=== PATIENT | female | born 1985 | race Caucasian/White ===

== ENCOUNTER 2016-05-30 20:49 | Inpatient (IN) | payer MEDICAID ==
[~2016-05-30] VITALS: Ht 157.5 cm; Wt 66.1 kg
[2016-05-30 21:09] VITALS: BP 100/57; PULSE 67; RESP 18
[2016-05-30] MEDS ORDERED: PRENAT PO (21:25)
[2016-05-30 22:48] LABS: ADD UMIC YES; URINE BILIRUBIN (Dip) NEGATIVE (NEGATIVE); URINE BLOOD (Dip) NEGATIVE (NEGATIVE); URINE COLOR LT. YELLOW (YELLOW); URINE GLUCOSE (Dip) NEGATIVE (NEGATIVE); URINE KETONES (Dip) NEGATIVE (NEGATIVE); URINE LEUKOCYTE ESTERASE (Dip) 3+ (NEGATIVE); URINE NITRITE (Dip) NEGATIVE (NEGATIVE); URINE TOTAL PROTEIN (Dip) NEGATIVE (NEGATIVE); URINE UROBILINOGEN (Dip) 0.2 E.U./dL (0.1-1.0)
[2016-05-30 23:00] LABS: SQUAMOUS EPITHELIAL CELL,UR MANY
[2016-05-30 23:01] LABS: BACTERIA,URINE MANY; URINE RBCS 0-2 /HPF (0)
--- NOTE | 2016-05-31 01:30 | PN ---
Date/Time of Note Date/Time of Note DATE: 05/31/16 TIME: 01:23 OB Subjective Subjective Subjective c/o lower abdominal pain for the last 3days intermittently visiting from [place] , 8days ago arrived no other subjective sx pain 05/22 OB Objective Objective Objective u/a pos for wbc5-10 leuk 3+ abdomen soft no tenderness sig cva neg for tenderness afebrile OB Assessment/Plan Other Assessment: had visit on regular basis acc to patient EDC 07/22/16 32 w 3d size small for age UTI Other plan: oral fluid U/S for GA and EFW Rx macrobi bid #20 DEANA THOMAS MD May 31, 2016 01:30
--- NOTE | 2016-05-31 02:16 | RADRPT ---
PROCEDURE: Obstetrical ultrasound, limited. CLINICAL INDICATION: Pelvic pain. TECHNIQUE: Multiple sonographic images of the pelvis were obtained using transabdominal technique . Images were obtained with craig scale and color Doppler. The images were reviewed on a PACS works tation. COMPARISON: No prior studies are available for comparison. FINDINGS: There is a single living intrauterine gestation with the fetus in a breech presentation. hear t tones of 144 beats per minute are identified. The placenta is anterior in location, grade 1-2. T here is borderline low amniotic fluid volume with an ANDREA of 5.7 cm. There is no evidence of placent a previa or abruption. Measurements were made in order to determine age. The results are as follows: BPD =8.28 cm HC =29.00 cm AC =27.94 cm FL =6.42 cm. Estimated gestational age of approximately 32 weeks and 4 days. The estimated date of delivery is 07/22/2016. The EFW = 1976 +/- 296 grams. Estimated weight percentage equals 35.7%. IMPRESSION: Single viable intrauterine gestation of approximately 32 weeks and 4 days, with an ultrasound DONTRELL of 07/22/2016. Borderline oligohydramnios with an ANDREA of 5.7 cm. .Kiet Pérez MD, Date Time Electronically viewed and signed by .Kiet Pérez MD, MD on 05/31/2016 02:15 .T/
[2016-05-31] MEDS: LACTATED RINGER'S 1,000 ML IV SCH ×3 (03:00→17:58)
--- NOTE | 2016-05-31 05:56 | TRIAGE ---
OB Triage Datetime Report Generated by CPN: 05/31/2016 05:56 Datetime: 05/31/2016 03:30 Assessment Type: Admission Assessment Vaginal Bleeding: None Maternal Assessment Level of Consciousness: Fully Conscious DTR's/Clonus: DTRs 2+; No Clonus Headache: Denies Blurred Vision: No Respiratory Effort: Unlabored Nausea/Vomiting: Denies RUQ Epigastric Pain: Denies Lower Extremities Edema: None Degree: None Upper Extremities Edema: None Degree: None Facial Edema: None Fall Risk Assessment History of Falling: (0) No Secondary Diagnosis: (0) No Ambulatory Aid: (0) Bedrest/Nurse Assist IV Therapy: (20) Yes Gait: (0) Normal/Bedrest/Immobile Mental Status: (0) Oriented to Own Ability Fall Score: 20 Fall Risk Score Definition: No Risk: No action required Labor Evaluation Frequency: 0 Duration (sec)2399: 0 Pattern: Normal: <= 5 Contractions in 10 Minutes Resting Tone [place]: Relaxed Heart Rate FHR Baseline Rate: 130 Variability: Moderate 6-25 bpm Accelerations: 15X15 Decelerations: None Category: Category I Pain Assessment Pain Scale: 0 Pain Presence: None/Denies Pain Type: N/A Pain Goal: 0 Datetime: 05/31/2016 03:00 Stage of : Antepartum Labor Evaluation Frequency: 0 Monitor Mode: External Duration (sec)2399: 0 Pattern: Normal: <= 5 Contractions in 10 Minutes Resting Tone [place]: Relaxed Contraction Comments: uterine irritiability noted. Heart Rate FHR Baseline Rate: 130 Monitor Mode: External US Variability: Moderate 6-25 bpm Accelerations: 15X15 Decelerations: None Category: Category I Datetime: 05/31/2016 02:43 Vaginal Exam Membrane Status: Intact Datetime: 05/31/2016 02:31 Stage of : OB Triage Datetime: 05/31/2016 02:30 Stage of : OB Triage Datetime: 05/31/2016 02:00 Stage of : OB Triage Labor Evaluation Frequency: 0 Monitor Mode: External Duration (sec)2399: 0 Pattern: Normal: <= 5 Contractions in 10 Minutes Resting Tone [place]: Relaxed Heart Rate FHR Baseline Rate: 130 Monitor Mode: External US Variability: Moderate 6-25 bpm Accelerations: 15X15 Decelerations: None Category: Category I Datetime: 05/31/2016 01:00 Labor Evaluation Frequency: 0 Monitor Mode: External Duration (sec)2399: 0 Pattern: Normal: <= 5 Contractions in 10 Minutes Resting Tone [place]: Relaxed Contraction Comments: uterine irritiability noted Heart Rate FHR Baseline Rate: 130 Monitor Mode: External US Variability: Moderate 6-25 bpm Accelerations: 15X15 Decelerations: None Category: Category I Datetime: 05/31/2016 00:05 Stage of : OB Triage Labor Evaluation Frequency: x1 and uterine irritiability Monitor Mode: External Duration (sec)2399: 70 Quality: Mild Pattern: Normal: <= 5 Contractions in 10 Minutes Resting Tone [place]: Relaxed Heart Rate FHR Baseline Rate: 130 Monitor Mode: External US Variability: Moderate 6-25 bpm Accelerations: 15X15 Decelerations: None Category: Category I Datetime: 05/30/2016 22:55 Labor Evaluation Frequency: 0 Monitor Mode: External Duration (sec)2399: 0 Pattern: Normal: <= 5 Contractions in 10 Minutes Resting Tone [place]: Relaxed Contraction Comments: uterine irritiabilty noted, lasting 10-30 seconds. Heart Rate FHR Baseline Rate: 130 Monitor Mode: External US Variability: Moderate 6-25 bpm Accelerations: 15X15 Decelerations: None Category: Category I Pain Assessment Pain Scale: 4 Pain Presence: Intermittent Pain Type: Cramping Pain Location: Abdomen Pain Goal: 1 Pain Relief Measures: Comfort Measures Pain Assessment Comments: pt. states she gets occassional pain on her lower right abdomen lasts 5- 10 seconds only. Datetime: 05/30/2016 22:00 Monitor Mode: External Resting Tone [place]: Relaxed Contraction Comments: uterine irritiability noted, lasting 30-40 seconds with pain. Heart Rate FHR Baseline Rate: 130 Monitor Mode: External US Variability: Moderate 6-25 bpm Accelerations: 15X15 Decelerations: None Category: Category I Datetime: 05/30/2016 21:08 Time of Arrival: 05/31/2016 03:00 EGA: 32.4 Arrived By: Wheelchair Arrived From: Home Chief Complaint: left lower abdominal pain Movement: Present Contractions: Denies/Absent Rupture of Membranes: Denies Vaginal Bleeding: None Vaginal Discharge: Denies Recent Sexual Intercouse: Denies Abdominal Trauma: Not Applicable Patient Complaints: Other Time Provider Notified: 05/30/2016 22:10 Provider Notified: Mitra Initial Plan: NST Datetime: 05/30/2016 21:07 Stage of : OB Triage Assessment Type: Triage Maternal Assessment Level of Consciousness: Fully Conscious DTR's/Clonus: DTRs 2+; No Clonus Headache: Denies Blurred Vision: No Respiratory Effort: Unlabored; Regular Rhythm; Equal Expansion Breath Sounds, Left: Clear and Equal Breath Sounds, Right: Clear and Equal Nausea/Vomiting: Denies RUQ Epigastric Pain: Denies Lower Extremities Edema: None Degree: None Upper Extremities Edema: None Degree: None Facial Edema: None Temperature Route: Oral Fall Risk Assessment History of Falling: (0) No Secondary Diagnosis: (0) No Ambulatory Aid: (0) Bedrest/Nurse Assist IV Therapy: (0) No Gait: (0) Normal/Bedrest/Immobile Mental Status: (0) Oriented to Own Ability Fall Score: 0 Fall Risk Score Definition: No Risk: No action required
--- NOTE | 2016-05-31 08:50 | RADRPT ---
AMENDMENT: 05/31/2016 12:47:46 PM Gopi Feliciano Md The amniotic fluid index is 6.7 cm. PROCEDURE: US OB. CLINICAL INDICATION: Contractions. labor and 32 weeks gestational age. TECHNIQUE: Multiple sonographic images of the uterus were obtained. The images were revi ewed on a PACS workstation. COMPARISON: No prior studies are available for comparison. FINDINGS: There is a single live intrauterine gestation. heart rate is 143 beats per minute. Measurements were made in order to determine age. The results are as follows: BPD = 7.99 cm. HC = 29.63 cm. AC = 27.20 cm. FL = 6.31 cm. Estimated weight is 1862 +/- 279 grams. LMP growth percentile is 21 %. Menstrual age by ultrasound dates is 32 weeks 1 day. The estimated date of delivery is 07/25/2016. Position is cephalic and placenta is anterior. There is no evidence for an abruption or placenta pre via. IMPRESSION: 1. Single live intrauterine gestation of 32 weeks 1 day menstrual age by ultrasound dates. 2. The estimated date of delivery is 07/25/2016. RPTAT: QQ .Gopi Feliciano MD, Date Time Electronically viewed and signed by .Gopi Feliciano MD, on 05/31/2016 12:47 .R/
[2016-05-31 10:45] LABS: ADD SCAN DIFF NO
[2016-05-31 10:49] LABS: BASOPHILS % 0.2 % (0.0-2.0); EOSINOPHILS % 0.4 % (0.0-7.0); HEMATOCRIT 34.7 % (37.0-47.0); HEMOGLOBIN 11.1 g/dl (12.0-16.0); LYMPHOCYTES # 2.3 10^3/ul (0.8-2.9); LYMPHOCYTES % 23.9 % (15.0-51.0); MEAN CORPUSCULAR HEMOGLOBIN 30.5 pg (29.0-33.0); MEAN CORPUSCULAR VOLUME 95.3 fl (82.0-101.0); MEAN PLATELET VOLUME 10.5 fl (7.4-10.4); MONOCYTE # 0.6 10^3/ul (0.3-0.9); MONOCYTES % 6.4 % (0.0-11.0); NEUTROPHIL # 6.5 10^3/ul (1.6-7.5); NEUTROPHILS % 68.4 % (39.0-77.0); PLATELET COUNT 271 10^3/UL (140-415); RED BLOOD COUNT 3.64 10^6/ul (4.20-5.40); RED CELL DISTRIBUTION WIDTH 13.9 % (11.5-14.5); WHITE BLOOD COUNT 9.5 10^3/ul (4.8-10.8)
--- NOTE | 2016-05-31 10:53 | RADRPT ---
PROCEDURE: Limited obstetric ultrasound CLINICAL INDICATION: CONTRACTIONS TECHNIQUE: Multiple transverse and longitudinal grayscale images of the pelvis were obtained winn sabdominally and endovaginally.. COMPARISON: Obstetrical ultrasound from 05/31/2016 at 08:18 hours FINDINGS: See impression. RPTAT: AA IMPRESSION: The cervix is closed and measures 4.1 cm in length. Physician Denny Date Time Electronically viewed and signed by Reginald Ojeda Physician on 05/31/2016 10:53 RA/
[2016-05-31 11:08] LABS: INR 1.1; PROTIME 14.2 Sec (12.2-14.2); PT RATIO 1.1
[2016-05-31 11:09] LABS: PARTIAL THROMBOPLASTIN TIME 28.1 Sec (25.0-35.0)
--- NOTE | 2016-05-31 16:18 | RADRPT ---
PROCEDURE: OB ultrasound for biophysical profile CLINICAL INDICATION: Biophysical profile. . Low amniotic fluid index. TECHNIQUE: Multiple sonographic images of the pelvis were obtained. Transabdominal view of the gr avid uterus are available for review. COMPARISON: OB ultrasound 05/31/2016 FINDINGS: Single intrauterine gestation. Presentation: Cephalic. breathing movement = 2/2 tone = 2/2 motion = 2/2 ANDREA = 2/2 ANDREA = 9.4 cm heart rate: 140 beats per minute IMPRESSION: Single intrauterine gestation. Biophysical profile 09/19 Amniotic fluid index of 9.4 cm, was previously measured as 6.0 cm earlier the same day. RPTAT: AADD .Andrew Martinez MD, MD Date Time Electronically viewed and signed by .Andrew Martinez MD, on 05/31/2016 16:17 .B/
[2016-05-31 22:09] LABS: BARBITURATES Negative (NEGATIVE); BENZODIAZEPINES Negative (NEGATIVE); CANNABINOIDS Negative (NEGATIVE); COCAINE Negative (NEGATIVE); OPIATES Negative (NEGATIVE)
--- NOTE | 2016-05-31 22:32 | QN ---
Documentation Comment Patient admitted last night due to incidental finding of oligohydramnios noted during ultrasound when she presented to triage with complaint of cramping. She had borderline low amniotic fluid, 6.2 She was admitted for repeat ANDREA after hydration. Patient denies any leaking of fluid, contraction, vaginal bleeding or decreased movement. She has recently moved from [place] visiting here. Reports that she had care in [place]. She had some records in [place] and random labs, not complete records She denies any mosquito Bite or any symptoms Repeat ANDREA still low 6.7 after hydration. No genetic screenig records or complete anatomy survey available NST: Appropriate for gestational age category 1 no contraction seen on the monitor Continue hydration Repeat ANDREA tomorrow Patient to see social services counselor today for establishing Medical for her care here in Perinatology consultation tomorrow if she continues to have borderline Low ANDREA, evaluation of kidneys and anatomy survey labs ordered HbA1c To receive Tdap while in house and prior to DC home Zika labs due to residency in [place] OFELIA BARLOW MD May 31, 2016 22:32
[2016-06-01] MEDS: LACTATED RINGER'S 1,000 ML IV SCH ×6 (01:19→22:00)
[2016-06-01 14:46] LABS: RUBELLA ANTIBODY - IGG 4.07 index
--- NOTE | 2016-06-01 17:44 | CONS ---
Date/Time of Note Date/Time of Note DATE: 06/01/16 TIME: 17:40 Consultation Date/Type/Reason Admit Date/Time June 01, 2006 Hospital visit Reason for Consultation This patient is a 30 years of 2 para 1 with EDC of 619 7 which makes her 32 weeks and 5 days She came yesterday in triage complaining of pelvic pain .She actually came to this country from [place] day before yesterday and states that she was under care in that country. However in triage the ultrasound showed ANDREA of 5.77 which was an incidental finding. Otherwise heart tone and to tracing were normal. Today which is the second day of hospitalization she is doing well ,no contractions, heart tone is normal, no pain,with hydration her repeat ANDREA was 9.4. On examination today as I mentioned she does not have any control contraction heart tone is normal with good variability The plan is to keep her tonight and will repeat ANDREA tomorrow again if there is 9 or above she would be able discharged to be followed in her [place] office Laboratory Tests Test 05/31/16 21:30 Urine Opiates Screen Negative Urine Barbiturates Negative Urine Amphetamines Screen Negative Urine Benzodiazepines Screen Negative Urine Cocaine Screen Negative Urine Cannabinoids Negative Current Medications Medications (Trade) Dose Ordered Sig/Emili Route PRN Reason Start Time Stop Time Status Last Admin Dose Admin Lactated Ringer's 1,000 ml @ 125 mls/hr Q8H IV 05/31/16 03:30 06/01/16 10:26 DC 06/01/16 10:23 125 MLS/HR Lactated Ringer's (Lr) 1,000 ml @ 125 mls/hr Q8H IV 05/31/16 06:00 06/01/16 17:29 125 MLS/HR Eyes: No discharge, No no complaints, No other, No pain, No redness, No visual change ENT: No bleeding, No congestion, No discharge, No dysphagia, No no complaints, No other, No pain, No sore throat Respiratory: No cough, No no complaints, No other, No pain, No pleuritic pain, No shortness of breath, No sputum, No wheezing Cardiovascular: No chest pain, No edema, No lightheadedness, No no complaints, No orthopenea, No other, No palpitations, No paroxysmal nocturnal dyspnea Gastrointestinal: other (No more abdominal pain or pressure feeling), No blood, No constipation, No decreased appetite, No diarrhea, No flatus, No nausea, No no complaints, No pain, No passing stool, No vomiting Musculoskeletal: No back pain, No bone/joint pain, No neck pain, No no complaints, No other, No restricted range of motion, No swelling Skin: No bruising, No erythema, No laceration, No no complaints, No other, No pruritis, No rash, No skin lesions Social History Smoking Status: Never smoker Exam/Review of Systems Vital Signs Vitals Vital Signs Date Time Temp Pulse Resp B/P Pulse Ox O2 Delivery O2 Flow Rate FiO2 05/30/16 21:09 98.2 67 18 100/57 Room Air Intake and Output 05/31/16 05/31/16 06/01/16 15:00 23:00 07:00 Intake Total 610 ml 1700 ml 500 ml Output Total 600 ml 1450 ml 800 ml Balance 10 ml 250 ml -300 ml Results Result Diagram: 05/31/16 1020 Results 24 hrs Laboratory Tests Test 05/31/16 21:30 Urine Opiates Screen Negative Urine Barbiturates Negative Urine Amphetamines Screen Negative Urine Benzodiazepines Screen Negative Urine Cocaine Screen Negative Urine Cannabinoids Negative Medications Medications Current Medications Lactated Ringer's (Lr) 1,000 ml @ 125 mls/hr Q8H IV Last administered on t 17:29; Admin Dose 125 MLS/HR; Start 05/31/16 at 06:00 ALLYN HALE MD Jun 01, 2016 17:44
[2016-06-02] MEDS: LACTATED RINGER'S 1,000 ML IV SCH (02:22)
--- NOTE | 2016-06-02 08:10 | RADRPT ---
PROCEDURE: US OB. CLINICAL INDICATION: Low ANDREA TECHNIQUE: Transabdominal views of the pelvis are available for review. COMPARISON: Obstetrical ultrasound from 05/31/2016 FINDINGS: There is a single intrauterine gestation in a vertex position. The heart rate is present at 148 bpm. The placenta is anterior. There is no evidence of placenta previa or a placental abruption. The ANDREA measures 8.0 cm. RPTAT: AA IMPRESSION: Low - normal ANDREA of 8.0 cm, compared with an ANDREA of 9.4 cm on 05/31/2016. Physician Denny Date Time Electronically viewed and signed by Physician Denny on 06/02/2016 08:10 RA/
--- NOTE | 2016-06-02 10:09 | PN ---
Date/Time of Note Date/Time of Note DATE: 06/02/16 TIME: 10:06 OB Subjective Subjective Subjective Patient denies any abdominal pain/contractions. +FM OB Objective Objective Objective Gen: NAD Abd: gravid, NT FHT: reactive [place]: no UCs OB Assessment/Plan Other Assessment: at 32.6 weeks admitted for abdominal pain and low ANDREA. No e/o optl. ANDREA normal. Other plan: Discharge home with ptl precautions. Encourage po hydration. Establishing medical. Referral to OB for care. SCOUT ARIAS Jun 02, 2016 10:09
--- NOTE | 2016-06-05 20:15 | PN ---
DATE: This patient was seen by me in me at the triage, and the patient was not admitted, in the process of observation, and my time was off and then related to the next person, who was ____. This patie nt was 30 years old, 2, para 1, came at about 32 weeks, who came 8 days prior to this visit from [place] and came with pelvic pain, and IV hydration was given, and the fundal height was small f or the gestation, which is supposed 32 weeks. The patient had care in [place] but small for gestational age, and the ultrasound ordered for the gestational age which was compatible with 32 we eks, but oligohydramnios was noted. So IV hydration was given and then was supposed to check the AF I, and I left the patient for next shift doctor. Dictated By: DOMO JONES/MIGUEL ANGEL Conf#: [id number] DID#: [id number]
== END 2016-06-02 12:30 | disposition home or self-care (01) | DRG 780 ==
LOC: EDBD → OBT 20:49 → L-D 20:49 → OBT 05-31 02:30 → L-D 05-31 02:30 → OBG 05-31 06:50
PROVIDERS: ADMIT Obstetrics & Gynecology; ATTEND Obstetrics & Gynecology
DX: O47.03 False labor before 37 completed weeks of gestation, third trimester (principal); O41.03X0 Oligohydramnios, third trimester, not applicable or unspecified; Z3A.32 32 weeks gestation of pregnancy
CPT/HCPCS: 36415; 76815; 76816; 76817; 76818; 80307; 81001; 81003; 83036; 85025; 85610; 85730; 86592; 86703; 86762; 86850; 86900; 86901; 87086; 87340; 96360; G0463; J7120

== ENCOUNTER 2016-06-10 15:19 | Outpatient (CLI) | payer MEDICAID ==
[~2016-06-10] VITALS: Ht 157.5 cm; Wt 66.8 kg
[~2016-06-10 15:19] MED LIST: PRENAT PO
[2016-06-10 15:56] VITALS: Ht 157.5 cm; Wt 66.8 kg
[2016-06-10 15:57] VITALS: BP 107/59; PULSE 81; RESP 18
[2016-06-10] MEDS ORDERED: BETAMET NA PHOS/AC(6 MG/ML) 5ML INJ IM SCH (16:30)
[2016-06-10] MEDS ORDERED: TERBUTALINE 1 MG/ML INJ SC ONE ×2 (16:30→17:30)
[2016-06-10] MEDS ORDERED: LACTATED RINGER'S 1,000 ML IV ONE (16:30)
[2016-06-10] MEDS ORDERED: FERR325C PO (16:40)
[2016-06-10] MEDS ORDERED: PROG200C6 VAG (16:42)
[2016-06-10] MEDS ORDERED: PROG200C6 PO (16:42)
--- NOTE | 2016-06-10 17:08 | RADRPT ---
PROCEDURE: US biophysical profile. CLINICAL INDICATION: Decreased motion. labor at 34 weeks gestational age. TECHNIQUE: Multiple sonographic images of the uterus were obtained. The images were revi ewed on a PACS workstation. COMPARISON: 05/31/2016. FINDINGS: There is a single live intrauterine gestation. heart rate is 157 beats per minute. The position is cephalic. The placenta is anterior grade II with no abruption or previa. The ANDREA is 8.3 cm. (Normal = 5-20 cm.) Breathing Movement: 2 Gross Body Movement: 2 Tone: 2 Qualitative Amniotic Fluid Volume: 2 TOTAL: 8 IMPRESSION: 1. The biophysical score is 8/8. RPTAT: QQ .Gopi Feliciano MD, Date Time Electronically viewed and signed by .Gopi Feliciano MD, on 06/10/2016 17:08 .R/
[2016-06-10 18:11] LABS: ADD UMIC YES; URINE BILIRUBIN (Dip) NEGATIVE (NEGATIVE); URINE BLOOD (Dip) NEGATIVE (NEGATIVE); URINE COLOR LT. YELLOW (YELLOW); URINE GLUCOSE (Dip) NEGATIVE (NEGATIVE); URINE KETONES (Dip) NEGATIVE (NEGATIVE); URINE LEUKOCYTE ESTERASE (Dip) 3+ (NEGATIVE); URINE NITRITE (Dip) NEGATIVE (NEGATIVE); URINE TOTAL PROTEIN (Dip) NEGATIVE (NEGATIVE); URINE UROBILINOGEN (Dip) 0.2 E.U./dL (0.1-1.0)
[2016-06-10] MEDS ORDERED: NIFEdipine 10 MG CAP PO ONE ×2 (18:30→19:39)
[2016-06-10 18:47] LABS: BACTERIA,URINE MANY; TRANSITIONAL EPI CELLS,URINE FEW
--- NOTE | 2016-06-10 22:43 | TRIAGE ---
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 External US FHR Baseline Changes: No Baseline Change Variability: Moderate 6-25 bpm Accelerations: 15X15 Decelerations: None Category: Category I Datetime: 05/31/2016 21:00 Labor Evaluation Frequency: 0 Monitor Mode: External Pattern: Normal: <= 5 Contractions in 10 Minutes Resting Tone [place]: Relaxed Heart Rate FHR Baseline Rate: 135 Monitor Mode: External US FHR Baseline Changes: No Baseline Change Variability: Moderate 6-25 bpm Accelerations: 15X15 Decelerations: None Category: Category I Datetime: 05/31/2016 20:10 Stage of : Antepartum Temperature Route: Oral Pain Assessment Pain Scale: 0 Pain Presence: None/Denies Pain Type: N/A Datetime: 05/31/2016 20:00 Assessment Type: Ongoing Assessment Maternal Assessment Level of Consciousness: Fully Conscious DTR's/Clonus: DTRs 2+; No Clonus Headache: Denies Blurred Vision: No Respiratory Effort: Unlabored; Regular Rhythm; Equal Expansion Breath Sounds, Left: Clear and Equal Breath Sounds, Right: Clear and Equal Nausea/Vomiting: Denies RUQ Epigastric Pain: Denies Lower Extremities Edema: None Upper Extremities Edema: None Facial Edema: None Fall Risk Assessment History of Falling: (0) No Secondary Diagnosis: (0) No Ambulatory Aid: (0) Bedrest/Nurse Assist IV Therapy: (20) Yes Gait: (0) Normal/Bedrest/Immobile Mental Status: (0) Oriented to Own Ability Fall Score: 20 Fall Risk Score Definition: No Risk: No action required Labor Evaluation Frequency: OCC Monitor Mode: External Duration (sec)6729: 40-50 Quality: Mild Pattern: Normal: <= 5 Contractions in 10 Minutes Resting Tone [place]: Relaxed Heart Rate FHR Baseline Rate: 140 Monitor Mode: External US FHR Baseline Changes: No Baseline Change Variability: Moderate 6-25 bpm Accelerations: 15X15 Decelerations: None Category: Category I Datetime: 05/31/2016 18:37 Comments: pt sitting up eating dinner Datetime: 05/31/2016 18:32 Labor Evaluation Frequency: 0 Monitor Mode: External Resting Tone [place]: Relaxed Heart Rate FHR Baseline Rate: 135 Monitor Mode: External US FHR Baseline Changes: No Baseline Change Variability: Moderate 6-25 bpm Accelerations: 15X15 Decelerations: Variable Category: Category II Pain Presence: None/Denies Datetime: 05/31/2016 17:59 Stage of : Antepartum Labor Evaluation Frequency: OCC Monitor Mode: External Duration (sec)2399: 40-50 Quality: Mild Pattern: Normal: <= 5 Contractions in 10 Minutes Resting Tone [place]: Relaxed Heart Rate FHR Baseline Rate: 140 Monitor Mode: External US Variability: Minimal - Undetectable to <=5 bpm Accelerations: 15X15 Decelerations: None Category: Category II Pain Assessment Pain Scale: 0 Pain Presence: None/Denies Pain Type: N/A Pain Goal: 0 Datetime: 05/31/2016 17:00 Stage of : Antepartum Labor Evaluation Frequency: OCC Monitor Mode: External Duration (sec)2399: 40-50 Quality: Mild Pattern: Normal: <= 5 Contractions in 10 Minutes Resting Tone [place]: Relaxed Heart Rate FHR Baseline Rate: 140 Monitor Mode: External US Variability: Minimal - Undetectable to <=5 bpm Accelerations: 15X15 Decelerations: None Category: Category II Pain Assessment Pain Scale: 0 Pain Presence: None/Denies Pain Type: N/A Pain Goal: 0 Datetime: 05/31/2016 15:59 Monitor Mode: External Resting Tone [place]: Relaxed Contraction Comments: NO UCS NOTED Heart Rate FHR Baseline Rate: 140 Monitor Mode: External US Variability: Minimal - Undetectable to <=5 bpm Decelerations: None Category: Category II Datetime: 05/31/2016 15:43 Monitor Mode: External US Datetime: 05/31/2016 15:00 Monitor Mode: External Resting Tone [place]: Relaxed Contraction Comments: NONE NOTED Heart Rate FHR Baseline Rate: 135 Monitor Mode: External US FHR Baseline Changes: No Baseline Change Variability: Moderate 6-25 bpm Accelerations: 15X15 Decelerations: None Category: Category I Pain Presence: None/Denies Pain Type: N/A Datetime: 05/31/2016 14:00 Monitor Mode: External Contraction Comments: NONE NOTED Heart Rate FHR Baseline Rate: 140 Monitor Mode: External US Variability: Moderate 6-25 bpm Accelerations: 15X15 Decelerations: None Category: Category I Datetime: 05/31/2016 13:00 Stage of : Antepartum Monitor Mode: External Resting Tone [place]: Relaxed Contraction Comments: NONE NOTED/DENIES Heart Rate FHR Baseline Rate: 140 Monitor Mode: External US Variability: Minimal - Undetectable to <=5 bpm Accelerations: 15X15 Decelerations: None Category: Category II Datetime: 05/31/2016 12:00 Stage of : Antepartum Labor Evaluation Frequency: OCC Monitor Mode: External Duration (sec)2399: 50-60 Quality: Mild Resting Tone [place]: Relaxed Heart Rate FHR Baseline Rate: 140 Monitor Mode: External US Variability: Minimal - Undetectable to <=5 bpm Accelerations: 15X15 Decelerations: None Category: Category I Datetime: 05/31/2016 10:59 Labor Evaluation Frequency: OCC Monitor Mode: External Duration (sec)2399: 50-60 Quality: Mild Pattern: Normal: <= 5 Contractions in 10 Minutes Resting Tone [place]: Relaxed Monitor Mode: External US FHR Baseline Changes: No Baseline Change Variability: Moderate 6-25 bpm Accelerations: 15X15 Decelerations: None Category: Category I Datetime: 05/31/2016 10:58 Labor Evaluation Frequency: OCC Monitor Mode: External Duration (sec)2399: 60-70 Quality: Mild Pattern: Normal: <= 5 Contractions in 10 Minutes Resting Tone [place]: Relaxed Heart Rate FHR Baseline Rate: 140 Monitor Mode: External US FHR Baseline Changes: No Baseline Change Variability: Moderate 6-25 bpm Accelerations: 15X15 Decelerations: None Category: Category I Pain Presence: None/Denies Pain Type: N/A Datetime: 05/31/2016 09:59 Labor Evaluation Frequency: OCC Monitor Mode: External Duration (sec)2399: 60-70 Quality: Mild Pattern: Normal: <= 5 Contractions in 10 Minutes Resting Tone [place]: Relaxed Heart Rate FHR Baseline Rate: 135 Monitor Mode: External US FHR Baseline Changes: No Baseline Change Variability: Moderate 6-25 bpm Accelerations: 15X15 Decelerations: None Category: Category I Pain Presence: Intermittent Pain Type: Cramping Pain Location: Abdomen Pain Relief Measures: Comfort Measures Datetime: 05/31/2016 08:39 Monitor Mode: External Pattern: Normal: <= 5 Contractions in 10 Minutes Resting Tone [place]: Relaxed Contraction Comments: DENIES FEELING ANY UCS Heart Rate FHR Baseline Rate: 145 Monitor Mode: External US Variability: Moderate 6-25 bpm Accelerations: 15X15 Decelerations: None Category: Category I Datetime: 05/31/2016 08:36 Pain Presence: None/Denies Pain Type: N/A Datetime: 05/31/2016 08:00 Assessment Type: Ongoing Assessment Maternal Assessment Level of Consciousness: Fully Conscious DTR's/Clonus: DTRs 2+; No Clonus Headache: Denies Blurred Vision: No Respiratory Effort: Unlabored; Regular Rhythm; Equal Expansion Breath Sounds, Left: Clear and Equal Breath Sounds, Right: Clear and Equal Nausea/Vomiting: Denies RUQ Epigastric Pain: Denies Lower Extremities Edema: None Upper Extremities Edema: None Facial Edema: None Fall Risk Assessment History of Falling: (0) No Secondary Diagnosis: (0) No Ambulatory Aid: (0) Bedrest/Nurse Assist IV Therapy: (20) Yes Gait: (0) Normal/Bedrest/Immobile Mental Status: (0) Oriented to Own Ability Fall Score: 20 Fall Risk Score Definition: No Risk: No action required Datetime: 05/31/2016 06:00 Labor Evaluation Frequency: 0 Monitor Mode: External Duration (sec)2399: 0 Pattern: Normal: <= 5 Contractions in 10 Minutes Resting Tone [place]: Relaxed Contraction Comments: uterine irritiability noted. Heart Rate FHR Baseline Rate: 135 Monitor Mode: External US Variability: Moderate 6-25 bpm Accelerations: 10X10 Decelerations: None Category: Category I Datetime: 05/31/2016 05:00 Labor Evaluation Frequency: x1 Monitor Mode: External Duration (sec)2399: 50 Quality: Mild Pattern: Normal: <= 5 Contractions in 10 Minutes Resting Tone [place]: Relaxed Heart Rate FHR Baseline Rate: 140 Monitor Mode: External US Variability: Moderate 6-25 bpm Accelerations: 15X15 Decelerations: None Category: Category I Pain Assessment Pain Scale: 0 Pain Presence: None/Denies Pain Type: N/A Pain Goal: 0 Datetime: 05/31/2016 03:30 Time of Arrival: 06/10/2016 15:10 EGA: 34.0 Arrived By: Ambulatory Arrived From: Home Chief Complaint: REPORTS SPOTTING AFTER VOIDING. DENIES ANY PAIN OR BLEEDING AT THIS TIME. FEELS T IGHTENING OF ABDOMEN Movement: Present Contractions: Occasional Contractions: 1-9 Rupture of Membranes: Denies Vaginal Bleeding: None Vaginal Discharge: Denies Recent Sexual Intercouse: Denies Abdominal Trauma: Not Applicable Patient Complaints: Cramping Time Provider Notified: 06/10/2016 16:06 Provider Notified: SIERRA Initial Plan: MONITOR FHR, CONTRACTIONS, AND V/S . Orders for IV hydration, Terbutaline, BPP, Beta methasone, and VE to be done at this time Fall Score: 20 Fall Risk Score Definition: No Risk: No action required Datetime: 05/30/2016 21:08 EGA: 32.4 Datetime: 05/30/2016 21:07 Fall Score: 0 Fall Risk Score Definition: No Risk: No action required
--- NOTE | 2016-06-10 22:52 | QN ---
Documentation Comment Laborist Dr Martinez's pt 30 y.o. with an IUP at 34 weeks and a prior delivery at 32 weeks came in c/o spotting and denying contractions. No leaking. PMHx: none. PSHx: none. NKDA. 107/59 T=97.7 BPP 8/8 ANDREA 8.3 VTX Anterior placenta CX: 50%/1/-2/intact U/A negative except for 3+ leukocytes. NST: baseline 150 bpm with accels to 170 bpm. No decels. UC's initially q 1-2 minutes Pt was IV hydrated, given 2 doses of terbutaline and then Procardia 20mg p.o. Pt had no spotting/bleeding at all while here. She never felt the UC's. A: IUP at 34 weeks. H/O PTL/PTD at 32 weeks. P: Dr Martinez gave the pt steroids with instructions to return tomorrow afternoon for the 2nd dose. Rx given for Procardia 10 mg p.o. q 6 hours x 3 weeks. Urine cx done.Pt instructed to have her clinic call in 2-3 days to get the results of the cx. PTL precautions reviewed. PAULINE BANKS MD Jun 10, 2016 22:52
== END 2016-06-10 22:43 | disposition home or self-care (01) ==
LOC: EDBD → OBT 15:19 → L-D 15:20 → OBT 22:43
PROVIDERS: ATTEND Obstetrics & Gynecology
DX: O26.853 Spotting complicating pregnancy, third trimester (principal); O09.213 Supervision of pregnancy with history of pre-term labor, third trimester; O36.8130 Decreased fetal movements, third trimester, not applicable or unspecified; Z3A.34 34 weeks gestation of pregnancy
CPT/HCPCS: 36415; 76818; 81001; 96361; 96365; 96372; J0702; J3105; J7120; Z7500; Z7610; 81003; 87086; G0463

== ENCOUNTER 2016-06-11 16:36 | Outpatient (CLI) | payer MEDICAID ==
[~2016-06-11] VITALS: Ht 157.5 cm; Wt 67.0 kg
[~2016-06-11 16:36] MED LIST changes: +FERR325C PO; +PROG200C6 VAG
[2016-06-11 16:53] VITALS: Ht 157.5 cm; Wt 67.0 kg
[2016-06-11 16:54] VITALS: BP 109/56; PULSE 68; RESP 20
[2016-06-11] MEDS ORDERED: BETAMET NA PHOS/AC(6 MG/ML) 5ML INJ IM ONE (17:30)
--- NOTE | 2016-06-11 17:56 | QN ---
Documentation Comment Laborist Dr Martinez's pt 30 y.o. with an IUP at 34w1d and with a prior delivery at 32 weeks here for her second dose of steroids after being here yesterday with spotting and contractions. Sent home on Procardia which pt states she is taking.No leaking or VB. PMHx: none. PSHx: none. NKDA. 109/56 T=97.0 NST: baseline 150 bpm with accels to 170 bpm. No decels and no UC's. A: IUP at 34w 1d. H/o labor and delivery. P: Second beta methasone shot given. Pt for f/u with her doctor 06/14 as scheduled. PAULINE BANKS MD Jun 11, 2016 17:56
--- NOTE | 2016-06-11 18:26 | TRIAGE ---
OB Triage Datetime Report Generated by CPN: 06/11/2016 18:26 Datetime: 06/11/2016 16:49 Time of Arrival: 06/11/2016 16:30 EGA: 34.1 Arrived By: Ambulatory Arrived From: Home Chief Complaint: HERE FOR 2ND DOSE BETAMETHASONE Movement: Present Contractions: Denies/Absent Rupture of Membranes: Denies Vaginal Bleeding: None Vaginal Discharge: Denies Recent Sexual Intercouse: Denies Abdominal Trauma: Not Applicable Patient Complaints: None Provider Notified: SIERRA Initial Plan: EFM,GIVE BETAMETHASONE 12MG IM ,NST CALL DR ESQUIVEL Level of Consciousness: Fully Conscious DTR's/Clonus: DTRs 2+; No Clonus Headache: Denies Blurred Vision: No Respiratory Effort: Unlabored; Regular Rhythm; Equal Expansion Breath Sounds, Left: Clear and Equal Breath Sounds, Right: Clear and Equal Nausea/Vomiting: Denies RUQ Epigastric Pain: Denies Facial Edema: None Temperature Route: Axillary History of Falling: (0) No Secondary Diagnosis: (0) No Ambulatory Aid: (0) Bedrest/Nurse Assist IV Therapy: (0) No Gait: (0) Normal/Bedrest/Immobile Mental Status: (0) Oriented to Own Ability Fall Score: 0 Fall Risk Score Definition: No Risk: No action required Frequency: NONE Pattern: Normal: <= 5 Contractions in 10 Minutes Resting Tone [place]: Relaxed Pain Scale: 0 Pain Presence: None/Denies Pain Goal: 0 Membrane Status: Intact Datetime: 06/11/2016 16:48 FHR Baseline Changes: No Baseline Change Variability: Moderate 6-25 bpm Accelerations: 15X15 Decelerations: None Category: Category I
== END 2016-06-11 17:45 | disposition home or self-care (01) ==
LOC: OBT 16:36 → L-D 16:37 → OBT 17:45
PROVIDERS: ATTEND Obstetrics & Gynecology
DX: O26.853 Spotting complicating pregnancy, third trimester (principal); O62.9 Abnormality of forces of labor, unspecified; O09.213 Supervision of pregnancy with history of pre-term labor, third trimester; Z3A.34 34 weeks gestation of pregnancy
CPT/HCPCS: G0463

== ENCOUNTER 2016-06-26 15:13 | Outpatient (CLI) | payer MEDICAID ==
[~2016-06-26] VITALS: Ht 160 cm; Wt 66.4 kg
[2016-06-26 15:24] VITALS: BP 107/69; PULSE 61; RESP 18; Ht 160 cm; Wt 66.4 kg
[2016-06-26] MEDS ORDERED: NIFE10CA19 PO (15:28)
[2016-06-26] MEDS ORDERED: TERBUTALINE 1 ML ONE (16:10)
[2016-06-26] MEDS ORDERED: TERBUTALINE 1 MG/ML INJ SC ONE (16:30)
--- NOTE | 2016-06-26 19:12 | QN ---
Documentation Comment 30 y/o female at 36.2 weeks sent in from NST for extended monitoring due to observation of a viable deceleration for routine monitoring because of ?IUGR Patient was earlier admitted with labor and is currently on PO Nofedipine After few Hours observation NO further deceleration was observed.. SQ Terbutaline given for UCs and they subsided Will observe and follow as outpatient PAIGE WEISS MD June 26, 2016 19:12
== END 2016-06-26 19:20 | disposition home or self-care (01) ==
LOC: OBT 15:13 → L-D 15:13 → OBT 19:20
PROVIDERS: ATTEND Obstetrics & Gynecology
DX: O36.5930 Maternal care for other known or suspected poor fetal growth, third trimester, not applicable or unspecified (principal); Z3A.36 36 weeks gestation of pregnancy
CPT/HCPCS: G0463; J3105

== ENCOUNTER 2016-07-05 12:18 | Inpatient (IN) | payer MEDICAID ==
[~2016-07-05] VITALS: Ht 160 cm; Wt 65.4 kg
[~2016-07-05 12:18] MED LIST changes: +NIFE10CA19 PO
[2016-07-05 14:59] VITALS: Ht 160 cm; Wt 65.4 kg
[2016-07-05 15:00] VITALS: BP 118/63; PULSE 68; RESP 18
[2016-07-05 15:19] LABS: ADD SCAN DIFF NO
[2016-07-05 15:20] LABS: BASOPHILS % 0.1 % (0.0-2.0); EOSINOPHILS % 0.4 % (0.0-7.0); HEMATOCRIT 36.9 % (37.0-47.0); HEMOGLOBIN 12.5 g/dl (12.0-16.0); LYMPHOCYTES # 2.3 10^3/ul (0.8-2.9); LYMPHOCYTES % 24.3 % (15.0-51.0); MEAN CORPUSCULAR HEMOGLOBIN 31.3 pg (29.0-33.0); MEAN CORPUSCULAR HGB CONC 33.9 g/dl (32.0-37.0); MEAN CORPUSCULAR VOLUME 92.3 fl (82.0-101.0); MEAN PLATELET VOLUME 10.4 fl (7.4-10.4); MONOCYTE # 0.6 10^3/ul (0.3-0.9); MONOCYTES % 6.5 % (0.0-11.0); NEUTROPHIL # 6.4 10^3/ul (1.6-7.5); NEUTROPHILS % 68.1 % (39.0-77.0); PLATELET COUNT 302 10^3/UL (140-415); RED CELL DISTRIBUTION WIDTH 13.5 % (11.5-14.5); WHITE BLOOD COUNT 9.4 10^3/ul (4.8-10.8)
[2016-07-05] MEDS: LACTATED RINGER'S 1,000 ML IV SCH ×2 (15:24→22:42)
[2016-07-05] MEDS ORDERED: BUTORPHANOL 2 MG INJ IV PRN (15:30)
[2016-07-05] MEDS ORDERED: OXYTOCIN 30 UNITS/LR 500 ML IV PRN (15:30)
[2016-07-05] MEDS ORDERED: LIDOCAINE 1% (MPF) 30 ML INJ INJ PRN (15:30)
[2016-07-05] MEDS ORDERED: METHYLERGONOVINE 0.2 MG INJ IM PRN (15:30)
[2016-07-05] MEDS ORDERED: MISOPROSTOL 200 MCG TAB PR PRN (15:30)
[2016-07-05] MEDS ORDERED: CARBOPROST 250 MCG INJ IM PRN (15:30)
[2016-07-05] MEDS ORDERED: OXYTOCIN 30 UNITS/LR 500 ML IV SCH ×2 (15:30)
[2016-07-05 15:55] LABS: INR 0.88; PARTIAL THROMBOPLASTIN TIME 26.9 Sec (25.0-35.0); PROTIME 11.9 Sec (12.2-14.2); PT RATIO 0.9
[2016-07-05] MEDS ORDERED: DINOPROSTONE 10 MG VAG SUPP VAG ONE (16:30)
[2016-07-05] MEDS ORDERED: LACTATED RINGER'S 1,000 ML IV PRN (19:00)
--- NOTE | 2016-07-05 20:32 | HP ---
Date/Time of Note Date/Time of Note DATE: 07/05/16 TIME: 20:29 OB - History Hx of Present Free Text/Dictation sent in by perinatologist for delivery Last Menstrual Period: Oct 16, 2015 Estimated Due Date: Jul 22, 2016 : 2 Para: 1 Care: Limited Care Ultrasounds: Normal mid trimester US Obstetrical Complications: Growth Restriction Medical Complications: None Past Family/Social History * Past Medical, Surgical, Family and Obstetric Histories reviewed from chart. Blood Type: O+ Rubella: immune RPR/VDRL: Negative GBS Status: Negative HBsAG: Negative OB Admission Exam Vital Signs Vital Signs Vital Signs Date Time Temp Pulse Resp B/P Pulse Ox O2 Delivery O2 Flow Rate FiO2 07/05/16 15:00 68 18 118/63 Room Air Physical Exam HEENT: WNL Heart: Rhythm Normal Lungs: Clear, Equal Abdomen: WNL Extremities: Normal Reflexes: Normal Cervical Dilatation: None Effacement: 0% Station: -3 Membranes: Intact Heart Rate: 140's Accelerations: Accelerations Present Decelerations: No Decelerations Varibility: Marked Contractions on Admission: None Last 72 hours Lab Results CBC & BMP 07/05/16 15:00 OB Assessment/Plan Reason for admission: induction of labor Other Assessment: 37 + weeks gestation IUGR sent by perinatologist for induction Induction Method: per Misoprostol Protocol PAIGE WEISS MD July 05, 2016 20:32
[2016-07-06] MEDS: LACTATED RINGER'S 1,000 ML IV SCH ×2 (05:40→15:09)
[2016-07-06] MEDS: OXYTOCIN 30 UNITS/LR 500 ML IV SCH ×2 (08:41→13:44)
[2016-07-06] MEDS: LACTATED RINGER'S 1,000 ML IV* SCH ×2 (08:41→16:41)
--- NOTE | 2016-07-06 08:46 | LDN ---
Date/Time of Note Date/Time of Note DATE: 07/06/16 TIME: 08:44 Delivery Summary Meconium: none Episiotomy: No Perineal laceration: 2 Laceration repair: 3-0 chromic Anesthesia type: None Estimated blood loss: 200 Sponge & Needle done & correct: Yes All needle counts correct: Yes Any foreign bodies felt in the: No Problems: Infant Delivery Information Sex Infant Sex: female Apgars 1 Minute: 8 5 Minute: 9 Suctioning Nose & mouth suctioned at eve: Yes Umbilical Cord Umbilical cord with: 3 Vessels Cord presentations: no nuchal cord Cord Blood was obtained: Yes Mother & Baby Disposition Disposition Mom & Baby to Maternity; Good: Yes SCOUT ARIAS July 06, 2016 08:46
[2016-07-06] MEDS ORDERED: LANOLIN 7 GM TUBE TOP PRN (09:00)
[2016-07-06] MEDS ORDERED: BENZOCAINE 20% 56 ML SPRAY TOP PRN (09:00)
[2016-07-06] MEDS ORDERED: DIBUCAINE 1% 30 GM OINT TOP PRN (09:00)
[2016-07-06] MEDS ORDERED: WITCH HAZEL/GLYCERIN PAD PR PRN (09:00)
[2016-07-06] MEDS ORDERED: CARBOPROST 250 MCG INJ IM PRN (09:00)
[2016-07-06] MEDS ORDERED: OXYTOCIN 30 UNITS/LR 500 ML IV PRN (09:00)
[2016-07-06] MEDS ORDERED: MISOPROSTOL 200 MCG TAB PR PRN (09:00)
[2016-07-06] MEDS ORDERED: ACETAMINOPHEN/CODEINE #3 TAB PO PRN ×2 (09:00)
[2016-07-06] MEDS ORDERED: METHYLERGONOVINE 0.2 MG INJ IM PRN (09:00)
[2016-07-06 10:35] VITALS: BP 105/67; PULSE 63; RESP 19
[2016-07-06] MEDS: IBUPROFEN 600 MG TAB PO SCH ×2 (11:55→17:36)
[2016-07-06 16:00] VITALS: BP 104/53; PULSE 66; RESP 19
[2016-07-06 20:00] VITALS: BP 101/54; PULSE 73; RESP 18
[2016-07-07 04:14] VITALS: BP 98/54; PULSE 66; RESP 18
[2016-07-07] MEDS: IBUPROFEN 600 MG TAB PO SCH ×4 (05:31→17:44)
[2016-07-07 07:34] LABS: ADD SCAN DIFF NO
[2016-07-07 07:41] LABS: BASOPHILS % 0.2 % (0.0-2.0); EOSINOPHILS % 0.4 % (0.0-7.0); HEMATOCRIT 31.5 % (37.0-47.0); HEMOGLOBIN 10.2 g/dl (12.0-16.0); LYMPHOCYTES # 2.8 10^3/ul (0.8-2.9); LYMPHOCYTES % 29.7 % (15.0-51.0); MEAN CORPUSCULAR HEMOGLOBIN 30.5 pg (29.0-33.0); MEAN CORPUSCULAR HGB CONC 32.4 g/dl (32.0-37.0); MEAN CORPUSCULAR VOLUME 94.3 fl (82.0-101.0); MEAN PLATELET VOLUME 10.6 fl (7.4-10.4); MONOCYTE # 0.5 10^3/ul (0.3-0.9); NEUTROPHIL # 6.1 10^3/ul (1.6-7.5); NEUTROPHILS % 64.3 % (39.0-77.0); PLATELET COUNT 240 10^3/UL (140-415); RED BLOOD COUNT 3.34 10^6/ul (4.20-5.40); RED CELL DISTRIBUTION WIDTH 13.9 % (11.5-14.5); WHITE BLOOD COUNT 9.5 10^3/ul (4.8-10.8)
[2016-07-07 07:45] VITALS: BP 100/55; PULSE 65; RESP 19
--- NOTE | 2016-07-07 10:32 | DS ---
Date/Time of Note Date/Time of Note home next day DATE: 07/07/16 TIME: 10:31 Obstetrical Discharge Record Final Diagnosis Final Diagnosis: Term delivered Other Final Diagnosis S/P vaginal delivery Vaginal Delivery Obstetrical Delivery: Spontaneous, Laceration, Repaired Complications Other Augmentation: No Induction: Yes Condition on Discharge Physical Assessment Last Vitals: see nurses notes Voiding: Yes Bowel Movement: Yes Breast: Soft, non-tender, Filling Fundus: Firm Abdomen and Incision: soft BS + Episiotomy: perineum : healing Calf Tenderness: No Patient Condition: Good PAIGE WEISS MD July 07, 2016 10:32
--- NOTE | 2016-07-07 10:34 | PD.PPDC ---
DAMPENER Discharge Instruction Provider Information Physician Information 30 y/o female had vaginal delivery Diagnosis Final Diagnosis: S/P vaginal delivery Condition Patient Condition: Good Diet Diet: Resume Regular Diet Activity/Restrictions Activity: Normal Activity May Shower Restrictions: Nothing in the Vagina Return to Work or School: Aug 21, 2016 Follow-up Follow-up with Physician: 4, Week/Weeks (in clinic) Return to clinic for OB Instructions: Breast Tenderness Depression PAIGE WEISS MD July 07, 2016 10:33
[2016-07-07] MEDS ORDERED: IBUP-1542 PO (10:35)
[2016-07-07 16:04] VITALS: BP 106/70; PULSE 79; RESP 19
[2016-07-07 20:00] VITALS: BP 108/55; PULSE 72; RESP 18
[2016-07-08 04:00] VITALS: BP 104/61; PULSE 56; RESP 18
[2016-07-08] MEDS: IBUPROFEN 600 MG TAB PO SCH ×3 (06:00→11:40)
[2016-07-08 07:40] VITALS: BP 116/56; PULSE 73; RESP 16
[2016-07-08] MEDS ORDERED: MEASLES,MUMPS,RUBELLA VACCINE INJ SC* ONE (09:00)
[2016-07-08] MEDS ORDERED: VARICELLA VACCINE LIVE/PF 1,350 UNIT/0.5 ML ML SC* ONE (09:00)
[2016-07-08] MEDS ORDERED: DIPHTH/TET/ACEL PERTUSS (ADULT) 0.5 ML VIAL IM* ONE (09:00)
--- NOTE | 2016-07-11 21:38 | NSTRPT ---
NST Information Datetime Report Generated by CPN: 07/11/2016 21:38 Datetime: 07/05/2016 11:05 NST Information EGA: 37.4 Test Number: 4 Time on Monitor: 07/05/2016 11:40 Time off Monitor: 07/05/2016 11:58 NST Duration (Min): 18 Reason for NST: IUGR Test and Monitor Explained: Monitor Explained; Test Explained; Verbalized Understanding Pulse: 85 Resp: 18 SBP: 101 DBP: 70 Test Evaluation NST Interventions: PO Hydration Patient States Movement: Present Contraction Frequency: occassional, denies FHR Baseline : 145 Variability: Minimal - <=5bpm Accelerations: 10X10 Decelerations: None FHR Category: Category II NST Results: Questionable Provider Notified: Dr Martinez _ Dr Wilkins Comments: To u/s, ANDREA 7.6, Cephalic 1149-Report to Dr Wilkins, recommends delivery 1151-Report to Dr Martinez, inc. Dr Wilkins's recommend ation of delivery, order received to admit to L_D. Report to ArmnieRN, L_D. POC explained to pt, as ked if able to go home first, stated no. Baby needs to be on the monitor, low fluid. states understa nding and denies further questions at this time. 1203-Pt to L_D for induction Electronically Signed By E-Signature: with User ID: [id number] Datetime: 07/03/2016 14:22 NST Information EGA: 37.2 Test Number: 3 Time on Monitor: 07/03/2016 14:44 Time off Monitor: 07/03/2016 15:15 NST Duration (Min): 31 Reason for NST: IUGR Test and Monitor Explained: Monitor Explained; Test Explained; Verbalized Understanding Pulse: 61 Resp: 17 SBP: 104 DBP: 58 Test Evaluation NST Interventions: Reposition Patient Patient States Movement: Present Contraction Frequency: none FHR Baseline : 140 Variability: Moderate 6-25bpm Accelerations: 15X15 Decelerations: None FHR Category: Category I NST Results: Reactive Comments: PT TO U/S. ANDREA 8.6cm, cephalic. 1519-Pt Home undelivered with LABOR precautions. Follow up NST appointment given. Kick Count instructions reviewed. Pt states understanding. No furthe r questions asked at this time. Electronically Signed By E-Signature: with User ID: [id number] Datetime: 06/29/2016 13:43 NST Information EGA: 36.5 NST Duration (Min): 23 Datetime: 06/26/2016 13:35 NST Information EGA: 36.2 NST Duration (Min): 45 Electronically Signed By E-Signature: with User ID: [email or web address]
== END 2016-07-08 14:40 | disposition home or self-care (01) | DRG 775 ==
LOC: L-D 14:26 → PP1 07-06 10:27 → EDSTATUS 07-22 12:14
PROVIDERS: ADMIT Obstetrics & Gynecology; ATTEND Obstetrics & Gynecology
PROC: 10E0XZZ Delivery of Products of Conception, External Approach (ICD-10-PCS; principal; 2016-07-06)
DX: O80 Encounter for full-term uncomplicated delivery (principal); Z37.0 Single live birth; Z3A.37 37 weeks gestation of pregnancy
CPT/HCPCS: 85025; 85610; 85730; 86592; 86900; 86901; 87340; 90715; 90716; 99464; J0595; J2590; J7120